=== PATIENT | female | born 1980 | race Hispanic/Latino ===

== ENCOUNTER → 2021-11-26 | Outpatient (CLI) | payer OTHER | END | disposition home or self-care (01) | LOC: RAH 12:57 | PROVIDERS: ATTEND Internal Medicine | DX: M79.89 Other specified soft tissue disorders (principal) | CPT/HCPCS: 93971 ==

== ENCOUNTER → 2024-07-31 | Outpatient (CLI) | payer OTHER ==
[~2024-07-31] VITALS: Ht 170.2 cm; Wt 115.8 kg
[~2024-07-31] MED LIST: AMLO-257 PO; ATOR20TA65 PO; AUD IH; CETI10TA87 PO; CINA30 PO; DICY20TA3 PO; ERGO500093 PO; FOLI0.8T22 PO; ICOS1CAP PO; INSU100I15 SQ; INSU3INS3 SQ; LEVO200C2 PO; LEVO75CA5 PO; LORA10TA7 PO; LOSA100T59 PO; MONT-39 PO; ONDA-104 PO; PANT40TA54 PO; TORS100T16 PO
[2024-07-31 09:51] VITALS: BP_SYST 203; BP_SYST 230; BP_DIAS 118; BP_DIAS 95; PULSE 84; RESP 18; TEMP 97.2
[2024-07-31 10:05] LABS: BASOPHILS # (AUTO) 0.08 K/uL (0.00-0.20); BASOPHILS % (AUTO) 0.8 % (0.0-5.0); EOSINOPHILS # (AUTO) 0.38 K/uL (0.00-0.70); EOSINOPHILS % (AUTO) 3.9 % (0.0-8.0); HEMATOCRIT 36.3 % (36-48); IMMATURE GRANULOCYTE ABSOLUTE 0.05 K/uL (0-1); LYMPHOCYTES # (AUTO) 1.5 K/uL (1.0-4.8); MEAN CORPUSCULAR HEMOGLOBIN 28.6 pg (27.0-33.0); MEAN CORPUSCULAR HGB CONC 31.1 g/dL (32.0-36.0); MEAN CORPUSCULAR VOLUME 91.9 fL (79-99); MONOCYTES # (AUTO) 0.7 K/uL (0.1-1.0); MONOCYTES % (AUTO) 7.5 % (3.0-13.0); NEUTROPHILS # (AUTO) 7.1 K/uL (1.8-7.7); NEUTROPHILS % (AUTO) 72.3 % (40.0-77.0); PLATELET COUNT (AUTO) 269 K/uL (130-400); RED BLOOD CELL COUNT(AUTO) 3.95 MIL/uL (4.00-5.50); RED CELL DISTRIBUTION WIDTH 18.9 % (11.0-15.5); WHITE BLOOD COUNT (AUTO) 9.8 K/uL (4.8-10.8)
--- NOTE | 2024-07-31 10:17 | EKG ---
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
[2024-07-31 10:20] VITALS: BP 187/90
[2024-07-31 10:20] LABS: INR 1.08 (0.85-1.15); PROTHROMBIN TIME 11.4 SEC (9.6-11.6)
[2024-07-31 10:21] LABS: PARTIAL THROMBOPLASTIN TIME 27.9 SEC (26.3-35.5)
[2024-07-31 10:27] LABS: POTASSIUM 4.8 mmol/L (3.5-5.1)
[2024-07-31 10:29] LABS: B-TYPE NATRIURETIC PEPTIDE 809 pg/mL (0-100)
[2024-07-31 10:33] LABS: CREATININE 18.7 mg/dL (0.5-1.0)
--- NOTE | 2024-07-31 16:44 | HMCIMG ---
CHEST 1VW HISTORY: Preop COMPARISON: None FINDINGS: A frontal projection of the chest was obtained. Right lower lobe pulmonary infiltrates and pleural effusion is seen. The heart is borderline enlarged. No evidence of aortic calcification is seen. IMPRESSION: 1. Right lower lobe pulmonary infiltrates and pleural effusion.
--- NOTE | 2024-08-01 10:54 | NUR ---
REPORT REPORTED BNP AND CXR TO LYLE MUÑOZ NP. OK TO PROCEED
== END ==
LOC: EDSTATUS 09:00 → DAH 09:01
PROVIDERS: ATTEND Internal Medicine Cardiovascular Disease
DX: Z01.818 Encounter for other preprocedural examination (principal); Z79.890 Hormone replacement therapy; Z79.01 Long term (current) use of anticoagulants; Z82.49 Family history of ischemic heart disease and other diseases of the circulatory system; Z83.3 Family history of diabetes mellitus; Z79.899 Other long term (current) drug therapy
CPT/HCPCS: 36415; 71045; 80048; 83880; 84703; 85025; 85610; 85730; 93005

== ENCOUNTER 2024-08-30 05:32 | Day surgery (SDC) | payer OTHER ==
[2024-08-25 11:49] LABS: BASOPHILS # (AUTO) 0.09 K/uL (0.00-0.20); BASOPHILS % (AUTO) 0.9 % (0.0-5.0); EOSINOPHILS # (AUTO) 0.37 K/uL (0.00-0.70); EOSINOPHILS % (AUTO) 3.6 % (0.0-8.0); HEMATOCRIT 38.3 % (36-48); IMMATURE GRANULOCYTE ABSOLUTE 0.05 K/uL (0-1); LYMPHOCYTES # (AUTO) 1.5 K/uL (1.0-4.8); LYMPHOCYTES % (AUTO) 14.3 % (21.0-51.0); MEAN CORPUSCULAR HEMOGLOBIN 28.7 pg (27.0-33.0); MEAN CORPUSCULAR HGB CONC 31.3 g/dL (32.0-36.0); MEAN CORPUSCULAR VOLUME 91.6 fL (79-99); MONOCYTES # (AUTO) 0.8 K/uL (0.1-1.0); MONOCYTES % (AUTO) 7.8 % (3.0-13.0); NEUTROPHILS # (AUTO) 7.6 K/uL (1.8-7.7); NEUTROPHILS % (AUTO) 72.9 % (40.0-77.0); PLATELET COUNT (AUTO) 274 K/uL (130-400); RED BLOOD CELL COUNT(AUTO) 4.18 MIL/uL (4.00-5.50); RED CELL DISTRIBUTION WIDTH 16.5 % (11.0-15.5); WHITE BLOOD COUNT (AUTO) 10.4 K/uL (4.8-10.8)
[2024-08-25 12:01] VITALS: BP 215/115; PULSE 87; RESP 18; TEMP 97.3
[2024-08-25 12:02] LABS: INR 1.08 (0.85-1.15); PROTHROMBIN TIME 11.4 SEC (9.6-11.6)
[2024-08-25 12:03] LABS: PARTIAL THROMBOPLASTIN TIME 27.9 SEC (26.3-35.5)
[2024-08-25 12:18] LABS: POTASSIUM 3.8 mmol/L (3.5-5.1)
[2024-08-25 12:20] LABS: B-TYPE NATRIURETIC PEPTIDE 248 pg/mL (0-100)
[2024-08-25 12:24] LABS: CREATININE 19.4 mg/dL (0.5-1.0)
--- NOTE | 2024-08-25 12:25 | NUR ---
REPORT REPORTED ELEVATED B/P TO LYLE MUÑOZ NP. 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 PT INSTRUCTED TO TAKE IN AM/KEEP A LOG/RECHECK B/P AT HOME SINCE SHE REFUSED TO GO TO ER. PT ASYMPTOMATIC. PT REPORTED SHE ALWAYS HAS ELEVATED B/P WHEN SHE GOES TO DR OR HOSPITAL. RECEIVED INSTRUCTIONS TO HAVE PT CALL OFFICE IF BLOOD PRESSURE STILL ELEVATED AT HOME. PT NOTIFIED AND VOICED UNDERSTANDING
--- NOTE | 2024-08-25 12:44 | EKG ---
[facility] [place] [place] Test Date: 2024-08-25 Test Time: 11:40:04 Pat Name: PINA GILES Department: [facility] Room: Gender: F Hand Candle Molder: [id number] : 1980 Requested By: GUANACO PADILLA Order Number: [id number] Reading MD: Vika Valadez Measurements Intervals [place] Rate: 86 P: 29 SD: 157 QRS: 46 QRSD: 85 T: 194 QT: 383 QTc: 459 Interpretive Statements Sinus rhythm Nonspecific repol abnormality, diffuse leads Compared to ECG 07/31/2024 10:40:28 Early repolarization now present Electronically Signed On 08-26-2024 16:47:50 CDT by Vika Valadez Please click the below link to view image of tracing.
--- NOTE | 2024-08-25 13:11 | HMCIMG ---
PORTABLE CHEST RADIOGRAPH INDICATION: PREOP COMPARISON: 07/31/2024 FINDINGS: Heart size is normal. The pulmonary vascularity and jerry appear normal. Right costophrenic angle is more blunted than the left and subjacent opacities noted without focal consolidation. No pneumothorax detected. IMPRESSION: Small right greater than left pleural effusion with subjacent passive atelectasis favored over other airspace process. Follow-up chest radiograph is advised in order to ensure resolution.
--- NOTE | 2024-08-25 15:43 | NUR ---
f/u received call back from pt reporting she took amlodipine and losartan and latest b/p 175/95. pt instructed if blood pressures continue to be stable she may take them morning of procedure with sip of water. pt also informed of risk having elevated b/ps. pt voiced understanding
--- NOTE | 2024-08-28 14:39 | NUR ---
report reported cxr to stanley dennis np. ok to proceed
[~2024-08-30] VITALS: Ht 170.2 cm; Wt 106.4 kg
[2024-08-30] VITALS (12 sets, daily range): BP systolic 115–160; BP diastolic 46–86; PULSE 59–83; RESP 14–18; TEMP 97.1–97.6
[~2024-08-30 05:32] MED LIST changes: -LEVO200C2 PO; +LEVO200C3 PO; -LEVO75CA5 PO; +LEVO75CA6 PO
[2024-08-30] MEDS ORDERED: NITROGLYCERIN 50MG VIAL ONE (07:07)
[2024-08-30] MEDS ORDERED: LIDOCAINE HCL 400MG/20ML VIAL ONE (07:07)
[2024-08-30] MEDS ORDERED: HEParin 10,000 UNIT/10ML (1,000 UNIT/ML) VIAL ONE ×2 (07:07→08:35)
[2024-08-30] MEDS ORDERED: IOHEXOL 350 MG/ML 100ML INFUS..BTL IV ONE ×3 (07:07→09:09)
[2024-08-30] MEDS ORDERED: HEParin-NS 1,000 UNIT/500 ML 1,000 ML IV ONE (07:07)
[2024-08-30] MEDS ORDERED: IODIXANOL 320 MG/ML 100 ML VIAL ONE (07:07)
[2024-08-30] MEDS: 0.9%NACL 1000ML 1,000 ML IV SCH ×2 (07:21→08:00)
[2024-08-30] MEDS ORDERED: MIDAZOLAM HCL 1 MG/ML 2ML VIAL ONE (07:30)
[2024-08-30] MEDS ORDERED: FENTanyl CITRate PF 50 MCG/1 ML 2ML VIAL ONE (07:30)
[2024-08-30] MEDS ORDERED: LAbetaLOL 20MG VIAL ONE (07:45)
[2024-08-30] MEDS ORDERED: hydrALAZine 20MG/ML VIAL ONE (07:46)
[2024-08-30] MEDS ORDERED: HEParin-NS 1,000 UNIT/500 ML 500 ML IV ONE (08:02)
[2024-08-30] MEDS ORDERED: ASPIRIN 325MG EC TAB PO ONE (09:46)
[2024-08-30] MEDS ORDERED: PRASUGREL HCL 10 MG TABLET ONE (09:46)
[2024-08-30] MEDS ORDERED: DEXTROSE 50%-WATER 50 ML DISP.SYRIN IV PRN (10:00)
--- NOTE | 2024-08-30 10:30 | PRN ---
DATE OF PROCEDURE: 08/30/2024 PROCEDURE PERFORMED: 1. LEFT HEART CATHETERIZATION RIGHT AND LEFT SELECTIVE CORONARY ANGIOGRAMS, IFR OF THE PROXIMAL AND MID LAD STENOSIS, IVUS OF THE PROXIMAL LAD, PTCA/ALEX TO THE PROXIMAL LAD EXTENDING JUST ACROSS THE DIAGONAL ONE BRANCH WITH A 3.5 X 15 MM MEDTRONIC MIGUEL FRONTIER ALEX, REPEAT IVUS OF THE PROXIMAL TO MID LAD, RIGHT COMMON FEMORAL ANGIOGRAM, PERCLOSE SUTURE CLOSURE OF THE RIGHT COMMON FEMORAL ARTERY, AND CONSCIOUS SEDATION 2. ABDOMINAL AORTOGRAM WITH BILATERAL ILIAC ANGIOGRAM BUSINESS LAW TEACHER: Guanaco Padilla MD, [facility] INDICATION: Prerenal transplant cardiac assessment, assessment of left and right iliac artery for anastomosis potential renal transplant, assessment of dyspnea on exertion PROCEDURE NOTE: After informed consent was obtained the patient was prepped and draped in the usual sterile fashion. A 6 Tamazight arterial sheath was inserted in the right femoral artery using a micropuncture technique with ultrasound guidance, with a front wall, first pass puncture. This was performed after fluoroscopic identification of bony landmarks to facilitate a more accurate puncture of the right common femoral artery. The arterial sheath was aspirated and flushed. A 6F JL-4 was then advanced to the ascending aorta over a J-tipped guidewire, was aspirated and flushed, and was used for selective left coronary angiograms in multiple obliquities. A JR-4 was advanced in a similar fashion to the ascending aorta over a J-tipped guidewire and was used for selective right coronary angiograms in multiple obliquities with findings as outlined below. PERCUTANEOUS CORONARY INTERVENTION: An IFR wire was used to obtain lesion assessment of the proximal and mid LAD stenosis which resulted in a reading of 0.73 with near identical multiple readings and no drift following the procedure. Patient was pretreated with intracoronary nitroglycerin and the wire was flushed with normal saline prior to normalization and prior to reading measurement, and a wire pullback demonstrated the lesion to be coincident with the change in IFR reading. Subsequently a 300 cm 0.014 in Run-through wire was placed in the diagonal one branch and a 300 cm 0.014 inch [employer] [place] wire was placed in the distal LAD. Intravascular ultrasound (IVUS) was then obtained in the proximal LAD and could not be advanced distal to the diagonal one branch due an to ongoing small caliber LAD with 60% calcific stenosis. A total of 120 discharges of shockwave lithotripsy energy was administered to the proximal LAD with a 3.5 x 12 mm shockwave balloon initially with to and subsequently with four atmosphere balloon inflations per routine protocol. Final results were excellent demonstrating yielding of the calcific stenosis. A 3.5 x 15 mm Medtronic [place] drug-eluting stent was deployed at 16 atmospheres with two post deployment inflations to 16 atmospheres to a 0% residual final stenosis. There was no perforation, dissection, or distal embolization. A right common femoral angiogram was performed to assess suitability for Perclose suture closure and the Perclose device was deployed in standard fashion. Perclose suture closure was successful without bleeding or hematoma. The patient tolerated the procedure well and was returned to the holding area in stable condition. FINDINGS: LEFT HEART HEMODYNAMICS: The patient's LVEDP was not obtained. No pullback procedure was performed. LEFT VENTRICULOGRAM: No left ventriculogram was performed. CORONARY ANGIOGRAM: LEFT MAIN: The left main was large and normal. LEFT ANTERIOR DESCENDING: The left anterior descending proximally had a calcific 80% stenosis, with 270 degree arc of calcification just prior to the bifurcation of the 1st diagonal branch, with aneurysmal dilatation of both the ongoing diagonal one and the ongoing mid LAD. There was a kink type linear line at the ostial diagonal which appeared to be vessel angulation. The ongoing mid LAD had a 15 mm calcific tubular 60% stenosis, followed by a normal distal and apical LAD. The diagonal one branch as mentioned had a kink at its origin with angulation and was a large vessel without significant stenosis. The diagonal two was small with a 70% stenosis. LEFT CIRCUMFLEX: The left circumflex was nondominant and normal. There was a small normal OM1 and a small normal OM2. A small to tiny OM3 had an 80% stenosis. RAMUS INTERMEDIATE BRANCH: There was no significant ramus intermediate branch. RIGHT CORONARY ARTERY: The right coronary artery had a 30% proximal and a 50% mid stenosis. The right coronary was otherwise normal as were the PDA and two posterolateral branches. IMPRESSION: Severe single-vessel coronary artery disease with 80% calcific proximal LAD stenosis and IFR of 0.73, with 270 degree arc of calcification. Normal left circumflex, 80% stenosis and a small to tiny OM3, and 50% mid RCA stenosis. Dyspnea on exertion may represent an anginal equivalent. 30% left renal artery stenosis. Normal abdominal aortogram and bilateral iliac angiogram otherwise. Successful PTCA and stenting of the proximal to mid LAD with a 3.5 x 15 mm [place] ALEX, with antecedent 3.5 x 12 Shockwave intracoronary lithotripsy pulse s x 120 RECOMMENDATION: Dual antiplatelet therapy x1 year Cleared for renal transplantation in six months COMPLICATIONS OF PROCEDURE: None, the patient tell her to the procedure well and was returned to her room in stable condition. HEMOSTASIS: Perclose suture closure was successful without bleeding or hematoma. ESTIMATED BLOOD LOSS: 10 mL. CONTRAST TOTAL: 330 mL. GUANACO PADILLA MD Aug 30, 2024 10:30
[2024-08-30] MEDS ORDERED: INSULIN humuLIN R 100 UNIT/ML 3ML SQ SCH (11:30)
--- NOTE | 2024-08-30 14:45 | NUR ---
REPORT RECEIVED REPORT FROM MANDY RAMIREZ. PATIENT AWAKE AND STABLE.
== END 2024-08-30 15:30 | disposition home or self-care (01) ==
LOC: DAH 05:32
PROVIDERS: ATTEND Internal Medicine Cardiovascular Disease
DX: R06.09 Other forms of dyspnea (principal); I25.118 Atherosclerotic heart disease of native coronary artery with other forms of angina pectoris; I70.1 Atherosclerosis of renal artery; I12.0 Hypertensive chronic kidney disease with stage 5 chronic kidney disease or end stage renal disease; E11.22 Type 2 diabetes mellitus with diabetic chronic kidney disease; N18.6 End stage renal disease; E11.40 Type 2 diabetes mellitus with diabetic neuropathy, unspecified; E89.0 Postprocedural hypothyroidism; E78.5 Hyperlipidemia, unspecified; G47.33 Obstructive sleep apnea (adult) (pediatric); Z99.89 Dependence on other enabling machines and devices; Z85.850 Personal history of malignant neoplasm of thyroid; Z90.89 Acquired absence of other organs; Z98.890 Other specified postprocedural states; Z79.4 Long term (current) use of insulin; Z79.899 Other long term (current) drug therapy; Z76.82 Awaiting organ transplant status
CPT/HCPCS: 75630; 93454; 80048; 83880; 85025; 85610; 85730; 36415; 71045; 93005; 92978; 92979; 92972; 93571; 85347 ×3; 82948 ×2; Q9965 ×4; A4223 ×3; C1887; C1894 ×2; C1874; C1760; C1761; C1769 ×3; C1753; J3010; J3490 ×3; J1644 ×3; J2250; Q9967 ×4; A4215; A4222; A4221; A4663; A4216; A4606; C9600; 75625; 75716; 99156; 99157; J0360